=== PATIENT | female | born 1975 | race Hispanic/Latino ===

== ENCOUNTER 2020-11-12 17:37 | Outpatient (CLI) | payer BC, SELFPAY | END 2020-11-12 17:38 | disposition home or self-care (01) | PROVIDERS: PCP Family Medicine | DX: Z23 Encounter for immunization (principal) | CPT/HCPCS: 0001A; 91300 ==

== ENCOUNTER 2020-12-03 16:59 | Outpatient (CLI) | payer BC, SELFPAY | END 2020-12-03 17:00 | disposition home or self-care (01) | LOC: ANHCOVIDVC 17:00 | PROVIDERS: PCP Family Medicine | DX: Z23 Encounter for immunization (principal) | CPT/HCPCS: 0002A; 91300 ==

== ENCOUNTER → 2021-09-05 10:46 | Outpatient (CLI) | payer BC, SELFPAY ==
[2021-09-06 20:10] LABS: SARS-CoV-2 RNA PCR Negative
== END ==
PROVIDERS: PCP Family Medicine; Visit Provider Nurse Practitioner Family
DX: R68.89 Other general symptoms and signs (principal); Z20.822 Contact with and (suspected) exposure to COVID-19
CPT/HCPCS: C9803; U0003; U0005

== ENCOUNTER 2022-07-25 11:10 | Outpatient (CLI) | payer BC, SELFPAY ==
[2022-07-25 22:17] LABS: Hemoglobin A1C 7.9 % (<5.7)
[2022-07-27 04:29] LABS: Free T4 Free Thyroxine Reflex 0.94 ng/dL (0.78-2.19)
[2022-07-27 05:09] LABS: Total Triiodothyronine (T3) 1.57 NG/ML (0.97-1.69)
== END 2022-07-25 11:11 | disposition home or self-care (01) ==
LOC: ANHGOSHLAB 11:13
PROVIDERS: PCP Family Medicine; Visit Provider Family Medicine
DX: E11.9 Type 2 diabetes mellitus without complications (principal); E03.9 Hypothyroidism, unspecified
CPT/HCPCS: 36415; 83036; 84439; 84443; 84480

== ENCOUNTER 2022-10-03 13:00 | Outpatient (RCR) | payer BC, SELFPAY | END 2022-10-30 11:14 | disposition home or self-care (01) | LOC: ANHDMC 13:00 | PROVIDERS: PCP Family Medicine; Visit Provider Family Medicine | DX: E11.9 Type 2 diabetes mellitus without complications (principal); Z71.89 Other specified counseling | CPT/HCPCS: G0108 ==

== ENCOUNTER 2022-12-13 15:33 | Outpatient (CLI) | payer BC, SELFPAY ==
[2022-12-13 18:46] LABS: Vitamin D 25 Hydroxy 25.3 ng/mL
[2022-12-13 18:57] LABS: Alanine Aminotransferase 116 U/L (6-35); Albumin Level 4.3 g/dL (3.5-5.1); Alkaline Phosphatase 112 U/L (38-126); Anion Gap 5 mmol/L (8-16); Aspartate Amino Transferase 85 U/L (14-36); Bilirubin,Total 0.7 mg/dL (0.2-1.3); Blood Urea Nitrogen 20 mg/dL (7-17); Calcium 9.4 mg/dL (8.4-10.2); Carbon Dioxide 31 mmol/L (22-30); Chloride 100 mmol/L (98-107); Cholesterol 186 mg/dL (0-200); Estimated Glomerular Filt Rate > 60; Glucose 184 mg/dL (65-110); HDL Direct 52 mg/dL; Potassium 3.9 mmol/L (3.4-5.0); Sodium 136 mmol/L (137-145); Triglycerides 195 mg/dL (<150)
[2022-12-13 19:08] LABS: LDL Cholesterol Direct 102 mg/dL
[2022-12-13 19:51] LABS: Hemoglobin A1C 6.4 % (<5.7)
[2022-12-13 20:20] LABS: Free T4 Free Thyroxine Reflex 1.02 ng/dL (0.78-2.19)
[2022-12-13 21:04] LABS: Total Triiodothyronine (T3) 1.43 NG/ML (0.97-1.69)
== END 2022-12-13 15:34 | disposition home or self-care (01) ==
LOC: ANHGOSHLAB 15:33
PROVIDERS: PCP Family Medicine; Visit Provider Family Medicine
DX: E11.9 Type 2 diabetes mellitus without complications (principal); Z13.220 Encounter for screening for lipoid disorders; E03.9 Hypothyroidism, unspecified; E55.9 Vitamin D deficiency, unspecified; I10 Essential (primary) hypertension
CPT/HCPCS: 36415; 80053; 80061; 82306; 83036; 84439; 84443; 84480

== ENCOUNTER 2023-01-19 15:15 | Outpatient (RCR) | payer BC, SELFPAY ==
--- NOTE | 2022-12-07 16:43 | PTOPEVAL1 ---
Assessment and note entered by Christian Balderrama, PT, DPT Evaluation Information Assessment Status Evaluation Diagnosis unsteadiness on her feet Subjective Information Pt states she has a lot of leg and back pain because of arthritis. 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 She states she has a high pain tolerance so did not realize her weakness was an issue until now. She states she has excruciating pain when standing for a while. She states she is just in bad shape and does not know where to start. Shes states when she takes her dog out she uses a walker d/t a prior fall. She reports a 6/10 pain but reports she cannot tell where her pain is . She states she has been trying to move around her house home but because she works from home this is hard. Reported Pain Level Pain Score 6: Self Report Assessment PT Clinical Summary Emily presents to therapy today for her initial evaluation with a diagnosis of unsteadiness on her feet. Today she demonstrates decreased LE strength throughout her BLEs. She demonstrates a decreased gait speed and has a shuffled and Trendelenburg gait pattern. She scores a 50/56 on the MUIR balance test and requires 23s to complete the 5xSTS test which places her at an increased risk for falls. Skilled physical therapy services are indicated to improve LE strength, LE pain reports, and overall functional mobility. Plan of Care Interventions Electrical Stimulation,Gait Training,Hot Pack/Cold Pack,Manual Therapy,Neuro Re-education,Patient/ Caregiver Educati,Therapeutic Activities, Therapeutic Exercise PT Services Indicated Yes Treatment Frequency and 2x/wk for 4 wks Duration These treatments will address the objective and functional deficits as defined above. The patient will be advanced safely and appropriately in order for the patient to progress towards his/her prior level of function. Additional exercises will be introduced and as well as a comprehensive home exercise program upon discharge, if needed, ?to ensure carryover of functional gains achieved in the clinic. This treatment plan has been reviewed and agreement upon by the patient.
--- NOTE | 2022-12-29 16:03 | PCPTNOTE ---
Patient canceled for this date due to work.
--- NOTE | 2023-01-04 13:29 | PCPTNOTE ---
Patient called & cancelled scheduled appointment this date due to having to work. She has been rescheduled.
--- NOTE | 2023-01-19 15:59 | PTOPDC ---
Assessment and note entered by Christian Balderrama, PT, DPT Evaluation Information Assessment Status Discharge Diagnosis unsteadiness on her feet Subjective Information Pt states she has noticed some improvements in her balance but is not 100%, she reports about 75% improvement. She states she can get off the couch much easier now. Reported Pain Level Pain Score 2: Self Report Assessment PT Clinical Summary Emily presents to therapy today for her progress report following 6 visits of skilled therapy with a diagnosis of unsteadiness on her feet. Today she demonstrates improve hip and LE strength but still decreased from expected. She improved her 2 min walk distance minimally but was able to improve her 5xSTS time from 23s to 15s. She is progressing slowly but well towards her therapy goals. She will be discharged at this time with instructed to continue her strengthening program as prescribed.
== END 2023-01-23 08:42 | disposition home or self-care (01) ==
LOC: ANHGOSHPT 15:15
PROVIDERS: PCP Family Medicine; Visit Provider Family Medicine
DX: R26.81 Unsteadiness on feet (principal)
CPT/HCPCS: 97110; 97112; 97140; 97161; 97530

== ENCOUNTER 2023-02-13 15:30 | Outpatient (RCR) | payer BC, SELFPAY | END 2023-02-19 08:40 | disposition home or self-care (01) | LOC: ANHDMC 15:30 | PROVIDERS: PCP Family Medicine; Visit Provider Family Medicine | DX: E11.9 Type 2 diabetes mellitus without complications (principal); Z71.89 Other specified counseling | CPT/HCPCS: G0108 ==

== ENCOUNTER 2023-03-13 15:30 | Outpatient (RCR) | payer BC, SELFPAY ==
[2023-03-13 15:39] VITALS: BMI 48.6
[2023-03-13 16:15] VITALS: BMI 48.6
== END 2023-06-11 12:50 | disposition home or self-care (01) ==
LOC: ANHDMC 15:30
PROVIDERS: PCP Family Medicine; Visit Provider Family Medicine
DX: E11.9 Type 2 diabetes mellitus without complications (principal); Z71.3 Dietary counseling and surveillance
CPT/HCPCS: 97802

== ENCOUNTER 2023-03-31 08:41 | Outpatient (CLI) | payer BC, SELFPAY ==
--- NOTE | ~2023-03-31 | US_ITS ---
EXAMINATION: US right upper quadrant DATE: 03/31/2023 09:42 INDICATION: RUQ sono TECHNIQUE: Multiple grayscale and Doppler ultrasound images of the right upper quadrant were obtained . COMPARISON: Ultrasound abdomen Limited 08/14/2010. FINDINGS: Exam limited by body habitus. Pancreas not visualized. The liver is normal size with increa sed echogenicity and normal echotexture. No surface nodularity. Normal hepatopetal flow in the main p ortal vein. The gallbladder is normal with no abnormal wall thickening, pericholecystic fluid or ston es. The common bile duct measures 3 mm. There was no sonographic Arauz sign. IMPRESSION: Echogenic liver, most commonly due to steatosis but also can be seen with hepatitis and fibrosis. Reviewed, dictated and finalized at location K. IMPRESSION: Echogenic liver, most commonly due to steatosis but also can be seen with hepat itis and fibrosis.
== END 2023-03-31 08:42 ==
LOC: MICIMG 08:42
PROVIDERS: PCP Family Medicine; Visit Provider Family Medicine
DX: R10.11 Right upper quadrant pain (principal); R93.2 Abnormal findings on diagnostic imaging of liver and biliary tract
CPT/HCPCS: 76705

== ENCOUNTER 2023-04-04 13:56 | Outpatient (CLI) | payer BC, SELFPAY ==
[2023-04-04 19:11] LABS: Alanine Aminotransferase 120 U/L (6-35); Albumin Level 3.8 g/dL (3.5-5.1); Alkaline Phosphatase 81 U/L (38-126); Anion Gap 4 mmol/L (8-16); Aspartate Amino Transferase 92 U/L (14-36); Bilirubin,Total 0.7 mg/dL (0.2-1.3); Blood Urea Nitrogen 15 mg/dL (7-17); Calcium 9.1 mg/dL (8.4-10.2); Carbon Dioxide 27 mmol/L (22-30); Chloride 100 mmol/L (98-107); Estimated Glomerular Filt Rate > 60; Glucose 332 mg/dL (65-110); Potassium 4.1 mmol/L (3.4-5.0); Sodium 131 mmol/L (137-145)
== END 2023-04-04 13:57 | disposition home or self-care (01) ==
LOC: ANHGOSHLAB 13:57
PROVIDERS: PCP Family Medicine; Visit Provider Family Medicine
DX: Z13.228 Encounter for screening for other metabolic disorders (principal)
CPT/HCPCS: 36415; 80053

== ENCOUNTER 2023-05-11 15:39 | Outpatient (CLI) | payer BC, SELFPAY ==
[2023-05-11 19:10] LABS: Hemoglobin A1C 7.1 % (<5.7)
[2023-05-11 19:38] LABS: Hepatitis B Surface Antigen Negative (Negative)
[2023-05-11 19:44] LABS: HAV RESULT Negative (Negative); Hepatitis B Core IgM Result Negative (Negative)
[2023-05-11 19:56] LABS: Hepatitis C Virus Antibody Negative (Negative)
[2023-05-11 20:09] LABS: Free T4 Free Thyroxine Reflex 1.09 ng/dL (0.78-2.19)
[2023-05-11 21:09] LABS: Total Triiodothyronine (T3) 1.47 NG/ML (0.97-1.69)
[2023-05-17 14:47] LABS: ALT 158 U/L (6-29); Alpha-2-Macroglobulin 182 mg/dL (106-279); Apolipoprotein A1 169 mg/dL (101-198); Fibrosis Score 0.18; Fibrosis Stage F0; GGT 59 U/L (3-55); Haptoglobin 131 mg/dL (43-212); Necroinflammat Act Grade A3; Total Bilirubin 0.7 mg/dL (0.2-1.2)
== END 2023-05-11 15:40 | disposition home or self-care (01) ==
LOC: ANHGOSHLAB 15:40
PROVIDERS: PCP Family Medicine; Visit Provider Family Medicine
DX: E11.9 Type 2 diabetes mellitus without complications (principal); K76.0 Fatty (change of) liver, not elsewhere classified; R74.01 Elevation of levels of liver transaminase levels; Z13.29 Encounter for screening for other suspected endocrine disorder
CPT/HCPCS: 36415; 80074; 81596; 83036; 84439; 84443; 84480

== ENCOUNTER 2023-09-25 15:30 | Outpatient (RCR) | payer BC, SELFPAY | END 2023-09-26 23:59 | disposition home or self-care (01) | LOC: ANHDMC 15:30 | PROVIDERS: PCP Family Medicine; Visit Provider Family Medicine | DX: E11.9 Type 2 diabetes mellitus without complications (principal); Z71.89 Other specified counseling | CPT/HCPCS: G0108 ==

== ENCOUNTER 2023-11-16 09:53 | Outpatient (CLI) | payer OTHER, SELFPAY ==
[2023-11-16 14:31] LABS: Cholesterol 182 mg/dL (0-200); HDL Direct 47 mg/dL; Triglycerides 127 mg/dL (<150)
[2023-11-16 14:42] LABS: LDL Cholesterol Direct 112 mg/dL
[2023-11-16 15:15] LABS: Free T4 Free Thyroxine 1.14 ng/mL (0.78-2.19)
[2023-11-16 17:20] LABS: Hemoglobin A1C 7.2 % (<5.7)
== END 2023-11-16 09:54 | disposition home or self-care (01) ==
LOC: ANHGOSHLAB 09:54
PROVIDERS: PCP Family Medicine; Visit Provider Family Medicine
DX: E03.9 Hypothyroidism, unspecified (principal); E11.9 Type 2 diabetes mellitus without complications; Z13.220 Encounter for screening for lipoid disorders
CPT/HCPCS: 36415; 80061; 83036; 84439; 84443

== ENCOUNTER 2024-07-02 10:43 | Outpatient (CLI) | payer OTHER, SELFPAY ==
--- NOTE | ~2024-07-02 | US_ITS ---
EXAMINATION: US thyroid DATE: 07/02/2024 10:58 INDICATION: Dysphagia TECHNIQUE: Multiple ultrasound images of the thyroid were obtained. COMPARISON: None. FINDINGS: The right thyroid lobe measures 3.8 x 1.6 x 1.8 cm. The left thyroid lobe measures 3.8 x 1.1 x 1.4 c m. The isthmus measures 0.3 cm. There is normal echotexture and echogenicity throughout the thyroid g land. No discrete nodules identified. Normal vascular flow is present. IMPRESSION: Normal thyroid ultrasound findings. Reviewed, dictated and finalized at location K.
== END 2024-07-02 10:44 | disposition home or self-care (01) ==
LOC: GOSHIMG 10:44
PROVIDERS: PCP Family Medicine; Visit Provider Family Medicine
DX: R13.10 Dysphagia, unspecified (principal)
CPT/HCPCS: 76536

== ENCOUNTER 2024-09-02 08:19 | Outpatient (CLI) | payer OTHER, SELFPAY ==
[2024-09-02 12:44] LABS: Alanine Aminotransferase 66 U/L (6-35); Albumin Level 4.2 g/dL (3.5-5.1); Alkaline Phosphatase 97 U/L (38-126); Anion Gap 2 mmol/L (4-12); Aspartate Amino Transferase 76 U/L (14-36); Bilirubin,Total 0.8 mg/dL (0.2-1.3); Blood Urea Nitrogen 21 mg/dL (7-17); Calcium 9.7 mg/dL (8.4-10.2); Carbon Dioxide 31 mmol/L (22-30); Chloride 104 mmol/L (98-107); Cholesterol 205 mg/dL (0-200); Estimated Glomerular Filt Rate > 60; Glucose 135 mg/dL (65-110); HDL Direct 46 mg/dL; Potassium 4.1 mmol/L (3.4-5.0); Sodium 137 mmol/L (137-145); Triglycerides 205 mg/dL (<150)
[2024-09-02 12:53] LABS: Creatinine Urine 205.4 mg/dL
[2024-09-02 12:56] LABS: LDL Cholesterol Direct 107 mg/dL
[2024-09-02 12:58] LABS: MALB Creatinine Ratio 59.2 mg/g (0-30); Microalbumin Urine Random 121.6 mg/L (0-16.7)
[2024-09-02 13:01] LABS: Free T4 Free Thyroxine 0.96 ng/dL (0.78-2.19)
[2024-09-02 13:15] LABS: Hemoglobin A1C 6.6 % (<5.7)
[2024-09-04 14:07] LABS: FSH 114.2 mIU/mL
[2024-09-05 08:59] LABS: Testosterone Total 29 ng/dL (2-45)
[2024-09-07 01:03] LABS: Estradiol, Ultrasensitive 8 pg/mL
== END 2024-09-02 08:20 | disposition home or self-care (01) ==
PROVIDERS: Obstetrics & Gynecology; PCP Family Medicine; Visit Provider Family Medicine
DX: E03.9 Hypothyroidism, unspecified (principal); E78.5 Hyperlipidemia, unspecified; E11.9 Type 2 diabetes mellitus without complications; R68.82 Decreased libido; Z13.228 Encounter for screening for other metabolic disorders
CPT/HCPCS: 36415; 80053; 80061; 82043; 82670; 83001; 83036; 84402; 84403; 84439; 84443

== ENCOUNTER 2024-09-29 15:12 | Outpatient (CLI) | payer OTHER, SELFPAY ==
--- NOTE | ~2024-09-29 | MM_ITS ---
EXAMINATION: MM screening colt BI w shabbir HISTORY: Screening TECHNIQUE: Craniocaudal and mediolateral oblique 3-D tomosynthesis images were obtained and synthetic 2-D images were generated. CAD analysis was submitted and interpreted. COMPARISON: No prior mammogram is available for comparison at this institution. BREAST PARENCHYMAL COMPOSITION: Not Dense: The breasts are almost entirely fatty. FINDINGS: There is no evidence of suspicious mass, calcification, or architectural distortion to sugg est malignancy in either breast. There has been no suspicious interval change. IMPRESSION: 1. No mammographic evidence of malignancy. 2. Recommend routine screening mammography in one year. BI-RADS Category 1: Negative Reviewed, dictated and finalized at location A. MARKETING SPECIALIST
== END 2024-09-29 15:13 | disposition home or self-care (01) ==
LOC: MICIMG 15:12
PROVIDERS: PCP Family Medicine; Visit Provider Obstetrics & Gynecology
DX: Z12.31 Encounter for screening mammogram for malignant neoplasm of breast (principal)
CPT/HCPCS: 77063; 77067

== ENCOUNTER 2025-04-30 10:34 | Outpatient (CLI) | payer OTHER, SELFPAY ==
--- OUTSIDE RECORDS SUMMARY | 2025-04-30 10:37 | XMS_ITS | Clinical Summary ---
Author Organization [facility] Address [address] [place] [id number] Phone Care Team Providers Care Certified Professional Ergonomist Name Role Phone Denver Jalloh DO Primary Care Provider [phone] Allergies No known active allergies Active Problems Problem Noted Date Diagnosed Date Osteoarthritis 06/06/2011 Knee pain 06/06/2011 Social History Tobacco Use Types Packs/Day Years Used Date Smoking Tobacco: Never Personal Safety Answer Date Recorded Getting School Help Needed Not on file 11/16 Comments Unknown Sex and Gender Information Value Date Recorded Sex Assigned at Not on file Legal Sex Female 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 Gender Identity Not on file Sexual Orientation Not on file Obstetrics History Last Filed Vital Signs Vital Sign Reading Time Taken Comments Blood Pressure 149/92 10/29/2022 11:19 AM WIRE CHIEF Pulse 85 10/29/2022 11:19 AM WIRE CHIEF Temperature 36.9 C (98.5 F) 10/29/2022 11:19 AM WIRE CHIEF Respiratory Rate 20 10/29/2022 11:19 AM WIRE CHIEF Oxygen Saturation 96% 10/29/2022 11:19 AM WIRE CHIEF Inhaled Oxygen Concentration - - Weight 117.9 kg (260 lb) 10/29/2022 11:19 AM WIRE CHIEF Height 157.5 cm (5' 2) 10/29/2022 11:19 AM WIRE CHIEF Body Mass Index 47.55 10/29/2022 11:19 AM WIRE CHIEF Plan of Treatment Health Maintenance Due Date Last Done Comments Breast Cancer Screening-Mammogram 1974 Cervical Cancer Screening 1974 Colon Cancer Screening-Colonoscopy 1974 Depression Screening 1974 Hepatitis C Screening 1974 DTaP/Tdap/Td Vaccine (1 - Tdap) 1985 Hepatitis B Screening 1992 Regular Well Visit/Exam 18-64 1992 Covid-19 Vaccine (4 - 2023-2 5 season) 2024 10/03/2021, 12/03/2020, 11/12/2020 Zoster Vaccine (1 of 2) 2024 Influenza Vaccine (#1) 2025 , 07/01/2019 Pneumococcal vaccine <65 Aged Out No longer eligible based on patient's age to complete this topic Insurance [employer] [place] [employer] [place] Care Teams Certified Professional Ergonomist Relationship Specialty Start Date End Date Denver Jalloh DO PCP - General Family Medicine 11/30/21
--- OUTSIDE RECORDS SUMMARY | 2025-04-30 10:37 | XMS_ITS | Clinical Summary ---
Author Organization [facility] Address [address] [place] [address] Phone Care Team Providers Care Supervisor Intelligence Analyst Name Role Phone Unavailable Primary Care Provider Unavailabl e Social History Tobacco Use Types Packs/Day Years Used Date Smoking Tobacco: Never Assessed Comments Unknown Sex and Gender Information Value Date Recorded Sex Assigned at Not on file Legal Sex Female 3:03 PM CDT Gender Identity Not on file Sexual Orientation Not on file Plan of Treatment Health Maintenance Due Date Last Done Comments DTAP/TDAP/TD VACCINES (1 - Tdap) 1993 HEPATITIS B VACCINES (1 of 3 - 19+ 3-dose series) 06/04 HPV/Cotest (21-29) 1995 CERVICAL CANCER SCREENING 2004 HPV/Cotest (30-65) 2004 PAP SMEAR 2004 BREAST CANCER SCREENING 2014 COLORECTAL SCREENING 2019 Colorectal Cancer Screening 2019 FIT-DNA Q 3 years 2019 FIT/FOBT Q 1 year 2019 Flex Sig/CT Colonography Q 5 years 2019 ZOSTER VACCINE (1 of 2) 2024 INFLUENZA VACCINE (#1) 2025
[2025-04-30 14:31] LABS: Hematocrit 40.3 % (37.0-47.0); Hemoglobin 13.4 g/dL (12.0-15.0); Mean Corpuscular HGB Conc 33.3 g/dl (32-36); Mean Corpuscular Hemoglobin 29.3 pg (26-34); Mean Corpuscular Volume 88.0 fl (80-100); Platelet Count Result 266 k/mm3 (150-375); Red Blood Count 4.58 M/mm3 (4.2-5.4); White Blood Count 6.1 K/mm3 (4.5-10.0)
[2025-04-30 14:51] LABS: Alanine Aminotransferase 53 U/L (6-35); Albumin Level 4.1 g/dL (3.5-5.1); Alkaline Phosphatase 94 U/L (38-126); Anion Gap 5 mmol/L (4-12); Aspartate Amino Transferase 82 U/L (14-36); Bilirubin,Total 0.6 mg/dL (0.2-1.3); Blood Urea Nitrogen 19 mg/dL (7-17); Calcium 9.5 mg/dL (8.4-10.2); Carbon Dioxide 31 mmol/L (22-30); Chloride 103 mmol/L (98-107); Cholesterol 187 mg/dL (0-200); Estimated Glomerular Filt Rate > 60; Glucose 134 mg/dL (65-110); HDL Direct 49 mg/dL; Potassium 4.0 mmol/L (3.4-5.0); Sodium 139 mmol/L (137-145); Total Protein 7.6 g/dL (6.3-8.2); Triglycerides 111 mg/dL (<150)
[2025-04-30 17:15] LABS: Thyroid Stimulating Hormone Reflex 9.600 uIU/mL (0.465-4.68)
[2025-04-30 17:22] LABS: MALB Creatinine Ratio 80.1 mg/g (0-30)
[2025-04-30 18:21] LABS: Free T4 Free Thyroxine Reflex 0.85 ng/dL (0.78-2.19)
[2025-04-30 18:26] LABS: Hemoglobin A1C 6.6 % (<5.7)
[2025-04-30 19:26] LABS: Total Triiodothyronine (T3) 1.37 NG/ML (0.82-1.58)
== END 2025-04-30 10:35 | disposition home or self-care (01) ==
LOC: ANHGOSHLAB 10:35
PROVIDERS: PCP Nurse Practitioner Family; Visit Provider Nurse Practitioner Family
DX: F41.9 Anxiety disorder, unspecified (principal); I10 Essential (primary) hypertension; R00.2 Palpitations; E78.5 Hyperlipidemia, unspecified; E11.9 Type 2 diabetes mellitus without complications; E03.8 Other specified hypothyroidism; E06.3 Autoimmune thyroiditis; E66.01 Morbid (severe) obesity due to excess calories; Z68.42 Body mass index [BMI] 45.0-49.9, adult; R79.89 Other specified abnormal findings of blood chemistry; K76.0 Fatty (change of) liver, not elsewhere classified; R80.9 Proteinuria, unspecified; Z78.0 Asymptomatic menopausal state; M19.90 Unspecified osteoarthritis, unspecified site; Z76.89 Persons encountering health services in other specified circumstances
CPT/HCPCS: 36415; 80053; 80061; 82043; 82306; 83036; 84439; 84443; 84480; 85027

== ENCOUNTER 2025-05-13 09:16 | Emergency (ER) | payer OTHER, SELFPAY ==
[2025-05-13 09:27] VITALS: BP 145/83; PULSE 79; RESP 16; TEMP 35.8; O2SAT 98
--- NOTE | 2025-05-13 09:46 | ED.EYEPROB ---
HPI - Eye Problem General Chief complaint: Eye Problems Stated complaint: EYE SWELLING Time Seen by Provider: 05/13/25 10:08 Source: patient and RN notes reviewed Mode of arrival: ambulatory Limitations: no limitations History of Present Illness HPI Narrative: 49-year-old female presents with concern for right upper eyelid redness and swelling. She reports it is tender. She reports symptoms started yesterday, she has used warm compresses. She reports that helped a little bit. She denies vision changes or drainage MD chief complaint: eye redness Related Data Home Medications ?Medication ?Instructions ?Recorded ?Confirmed ?Last Taken ?Type ibuprofen 400 mg tablet 400 mg PO TID PRN 11/21/22 04/30/25 Unknown History Allergies Allergy/AdvReac Type Severity Reaction Status Date / Time No Known Allergies Allergy Verified 05/13/25 09:33 Review of Systems Review of Systems: CONSTITUTIONAL: Denies malaise, chills, sweats, or fever. EYES: Denies visual changes. Reports right upper eyelid redness, swelling and tenderness. Denies eye irritation, discharge. ENT: Denies rhinorrhea, congestion, sinus pain, otalgia or sore throat. SKIN: Denies rash or itching. NEUROLOGIC: Denies numbness, weakness, or headache. PSYCHIATRIC: Denies anxiety or depression. All systems reviewed & are unremarkable except as noted in HPI and below PMFSH Past Medical History Medical History (Updated 05/13/25 @ 10:16 by Alda Khan NP) Peripheral neuropathy Leg pain, bilateral Menopause Colon cancer screening Arthritis Anxiety Breast screening Dietary counseling and surveillance (07/01/18) Elevated BP without diagnosis of hypertension Screening, lipid Family History Family History Father Diabetes mellitus Hypertension Mother Diabetes mellitus Grandparent Diabetes mellitus Hypertension Grandparent Diabetes mellitus Other Family history of arthritis Social History Social History Smoking status: Never smoker Second hand tobacco smoke exposure: No Alcohol intake: never Substance use: never Substance use type: does not use Do You Feel Safe in your Home?: Yes Lack of Transportation: No Current Housing: Decline to Answer Concerned About Future Housing: Decline to Answer Difficulty Paying Gas/Electric Bills: Decline to Answer Difficulty Paying for Meds: Decline to Answer Currently Unemployed: Decline to Answer Education: Decline to Answer Difficulty w/ Childcare or Family Care: Decline to Answer Living arrangements: with family Additional living arrangements comments: 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 There is no relevant family history pertinent to the presenting complaint Exam Narrative: GENERAL: Well-appearing, well-nourished, and in no acute distress. HEAD: Normocephalic, atraumatic. EYES: PERRLA, sclera clear, and EOMI. No nystagmus. Bilateral conjunctivae and sclera clear. Upper eyelid is slightly edematous and erythematous, lower eyelid unremarkable, no periorbital edema noted ENT: Nares clear, turbinates pink, no rhinorrhea or epistaxis. Mucous membranes moist. TM pearly jean with sharp light reflex bilaterally; no tragal tenderness. NECK: Supple. CHEST: No respiratory distress. Speaks in full sentences. HEART: Regular rate and rhythm. SKIN: Warm, dry, no visible rash. NEURO: Alert and oriented x3. PSYCH: Normal mood and affect Course Course Emergency Course: Patient is aware of diagnosis, understands and agrees to treatment plan. Anticipatory guidance given. Patient agrees to follow-up as directed and is aware of reasons to seek care at the emergency department. Portions of this record may have been created with voice recognition software Level of Care: Express Care Visit Vital Signs Vital signs: Vital Signs Temperature 96.5 F L 05/13/25 09:27 Pulse Rate 79 05/13/25 09:27 Respiratory Rate 16 05/13/25 09:27 Blood Pressure 145/83 H 05/13/25 09:27 Pulse Oximetry 98 05/13/25 09:27 Temperature 96.5 F L 05/13/25 09:27 Pulse Rate 79 05/13/25 09:27 Respiratory Rate 16 05/13/25 09:27 Blood Pressure 145/83 H 05/13/25 09:27 Pulse Oximetry 98 05/13/25 09:27 Reviewed. MDM - Eye Problem MDM Narrative Medical decision making narrative: Consideration of the following conditions may be warranted for the presenting problem, they are not final diagnoses: Bacterial conjunctivitis, allergic conjunctivitis, viral conjunctivitis, foreign body, blepharitis, chalazion, hordeolum, corneal abrasion, preseptal cellulitis, orbital cellulitis. No evidence of proptosis, ophthalmoplegia, vision loss, pain with eye movement. Exam findings show no acute concerns or changes; patient is non-toxic appearing and is in no distress. Patient is appropriate for outpatient treatment and follow-up. Critical Care Time Critical Care Time Critical Care Time: No Discharge Plan Discharge Clinical Impression: Hordeolum internum Patient Disposition: Home Condition: Stable Instructions: Angel (ED) Additional Instructions: Do not touch or rub your eye. Use a warm washcloth on your eye often Use eyedrops as directed You may take Tylenol or ibuprofen for pain Follow-up with PCP or endodontic assistant if condition is not improving in 2-3days. Go to the emergency room if you have pain behind your eye, pressure behind your eye, difficulty seeing, or other severe symptoms Patient Language: Syrian Prescriptions: New polymyxin B sulf-trimethoprim 10,000 unit- 1 mg/mL drops 1 drp RIGHT EYE Q3H 7 Days Qty: 10 0RF Rx Instructions: while awake; do not exceed 6 doses in 24 hours No Action gabapentin 300 mg capsule 300 mg PO TID Qty: 90 0RF (DME) Dexcom G7 Sensor Device See Rx Instructions .Route Qty: 1 0RF Rx Instructions: Change every 10 days. (DME) Dexcom G7 Press Machine Operator Misc See Rx Instructions .Route Qty: 1 0RF Rx Instructions: Use to check BS ibuprofen 400 mg tablet 400 mg PO TID PRN lisinopril 2.5 mg tablet 2.5 mg PO DAILY Qty: 90 1RF Follow-up/Referrals: Leann Lr APRN [Primary Care Provider, Internal Medicine] Stand Alone Forms: Work/School Release IP Time of Disposition: 10:17
== END 2025-05-13 10:35 | disposition home or self-care (01) ==
PROVIDERS: Emergency Provider Nurse Practitioner; PCP Nurse Practitioner Family
DX: H00.021 Hordeolum internum right upper eyelid (principal); G62.9 Polyneuropathy, unspecified; M19.90 Unspecified osteoarthritis, unspecified site
CPT/HCPCS: 99213; G0463

== ENCOUNTER 2025-05-29 09:26 | Outpatient (CLI) | payer OTHER, SELFPAY ==
--- NOTE | ~2025-05-29 | XR_ITS ---
XR thoracic spine 2V Indication: M54.10 - Radiculopathy, site unspecified Comparison: None Findings: Moderate loss of vertebral height throughout. No fracture or subluxation. Moderate loss of disc height throughout. Soft tissues unremarkable Impression: No acute abnormality. Reviewed, dictated and finalized at location P. Impression: No acute abnormality.
--- NOTE | ~2025-05-29 | XR_ITS ---
XR lumbar spine 2-3V Indication: M54.10 - Radiculopathy, site unspecified Comparison: None Findings: The vertebral heights are intact. No fracture or subluxation. Moderate loss of disc at L5-S1. Soft tissues unremarkable Impression: No acute abnormality. Reviewed, dictated and finalized at location P. Impression: No acute abnormality.
--- NOTE | ~2025-05-29 | XR_ITS ---
XR_CERV2-3V_CR Indication: M54.10 - Radiculopathy, site unspecified Comparison: None Findings: Moderate loss of vertebral height throughout with anterior osteophyte formation, no acute fracture or subluxation. Moderate loss of disc height throughout. Soft tissues unremarkable Impression: No acute abnormality. Reviewed, dictated and finalized at location P. Impression: No acute abnormality.
== END 2025-05-29 09:27 | disposition home or self-care (01) ==
LOC: MICIMG 09:28
PROVIDERS: PCP Nurse Practitioner Family; Visit Provider Nurse Practitioner Family
DX: M54.10 Radiculopathy, site unspecified (principal)
CPT/HCPCS: 72040; 72070; 72100

== ENCOUNTER 2025-05-29 10:21 | Outpatient (CLI) | payer OTHER, SELFPAY ==
--- OUTSIDE RECORDS SUMMARY | 2025-05-29 10:23 | XMS_ITS | Clinical Summary ---
Author Organization [facility] Address [address] [place] [address] Phone Care Team Providers Care User Support Specialist Name Role Phone Unavailable Primary Care Provider [...]
--- OUTSIDE RECORDS SUMMARY | 2025-05-29 10:23 | XMS_ITS | Clinical Summary ---
Author Organization [facility] Address [address] [place] [phone] Phone Care Team Providers Care Casing Material Weigher Name Role Phone Denver Jalloh DO Primary Care Provider [phone] Allergies No known active allergies Active Problems Problem Noted Date Diagnosed Date Osteoarthritis 06/06/2011 Knee pain 06/06/2011 Social History Tobacco Use Types Packs/Day Years Used Date Smoking Tobacco: Never Personal Safety Answer Date Recorded Getting School Help Needed Not on file 11/16 Comments Unknown Sex and Gender Information Value Date Recorded Sex Assigned at Not on file Legal Sex 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[employer] SE[employer]ER [employer]S Gender Identity Not on file Sexual Orientation Not on file Obstetrics History Last Filed Vital Signs Vital Sign Reading Time Taken Comments Blood Pressure 149/92 10/29/2022 11:19 AM SUPERINTENDENT WATER AND SE[employer]ER [employer] Pulse 85 10/29/2022 11:19 AM SUPERINTENDENT [employer] Temperature 36.9 C (98.5 F) 10/29/2022 11:19 AM SUPERINTENDENT [employer] Respiratory Rate 20 10/29/2022 11:19 AM SUPERINTENDENT W[employer] AND [employer] Oxygen Saturation 96% 10/29/2022 11:19 AM SUPERINTENDENT [employer] Inhaled Oxygen Concentration - - Weight 117.9 kg (260 lb) 10/29/2022 11:19 AM SUPERINTENDENT [employer] Height 157.5 cm (5' 2) 10/29/2022 11:19 AM SUPERINTENDENT [employer] Body Mass Index 47.55 10/29/2022 11:19 AM SUPERINTENDENT [employer] Plan of Treatment Health Maintenance Due Date Last Done Comments Breast Cancer Screening-Mammogram 1974 Cervical Cancer Screening 1974 Colon Cancer Screening-Colonoscopy 1974 Depression Screening 1974 Hepatitis C Screening 1974 DTaP/Tdap/Td Vaccine (1 - Tdap) 1985 Hepatitis B Screening 1992 Regular Well Visit/Exam 18-64 1992 Zoster Vaccine (1 of 2) 2024 Covid-19 Vaccine (4 - 2024-2 6 season) 2025 10/03/2021, 12/03/2020, 11/12/2020 Influenza Vaccine (#1) 2025 , 07/01/2019 Pneumococcal vaccine <65 Aged Out No longer eligible based on patient's age to complete this topic Insurance [employer] [place] Care Teams Casing Material Weigher Relationship Specialty Start Date End Date Denver Jalloh DO PCP - General Family Medicine 11/30/21
[2025-05-29 18:32] LABS: Magnesium 1.9 mg/dL (1.6-2.3)
[2025-05-29 18:33] LABS: Iron 107 ug/dL (37-170)
[2025-05-29 18:50] LABS: Percent Iron Saturation 24 % (20-50)
[2025-05-29 19:17] LABS: Ferritin 32.20 ng/mL (11.1-264)
[2025-05-29 19:47] LABS: Vitamin B12 353.0 pg/mL (239-931)
== END 2025-05-29 10:22 | disposition home or self-care (01) ==
LOC: ANHGOSHLAB 10:21
PROVIDERS: PCP Nurse Practitioner Family; Visit Provider Nurse Practitioner Family
DX: R20.2 Paresthesia of skin (principal); R26.89 Other abnormalities of gait and mobility; G62.9 Polyneuropathy, unspecified
CPT/HCPCS: 36415; 82607; 82728; 82746; 83540; 83550; 83735

== ENCOUNTER 2025-06-23 10:48 | Emergency (ER) | payer OTHER, SELFPAY ==
--- NOTE | 2025-06-23 10:53 | ED_ITS ---
HPI - URI/Sore Throat General Chief Complaint: Anxiety Stated Complaint: Anxiety Time Seen by Provider: 06/23/25 11:19 Source: patient, RN notes reviewed and old records reviewed Mode of arrival: ambulatory Limitations: no limitations History of Present Illness HPI Narrative: 49-year-old female presents to the [facility] with concerns of feeling drowsy after starting duloxetine a week ago. States that she takes gabapentin at night. Patient states she does not like feeling drowsy at work. Skipped a dose of duloxetine and developed a headache. Treatments prior to arrival: none Related Data Home Medications ?Medication ?Instructions ?Recorded ?Confirmed ?Last Taken ?Type ibuprofen 400 mg tablet 400 mg PO TID PRN 11/21/22 0 05/29/25 Unknown History gabapentin 300 mg capsule 300 mg PO QHS 05/29/2505/29 Unknown History Allergies Allergy/AdvReac Type Severity Reaction Status Date / Time No Known Allergies Allergy Verified 06/23/25 11:10 Review of Systems Review of Systems: All systems reviewed & are unremarkable except as noted in HPI and below Constitutional: Constitutional: Reports no additional constitutional complaints ENT: Reports system reviewed and no additional complaints, except as documented Cardiovascular: Cardiovascular: Reports no additional cardiovascular complaints, Denies chest pain and Denies dyspnea Respiratory: Respiratory: Reports no additional respiratory complaints, Denies chest congestion, Denies cough and Denies dyspnea Musculoskeletal: Musculoskeletal: Reports no additional musculoskeletal complaints Integumentary/Breasts: Skin/Breast: Reports system reviewed and no additional complaints, except as docu PMFSH Past Medical History Medical History Peripheral neuropathy Leg pain, bilateral Menopause Colon cancer screening Arthritis Anxiety Breast screening Dietary counseling and surveillance (07/01/18) Elevated BP without diagnosis of hypertension Screening, lipid Family History Family History Father Diabetes mellitus Hypertension Mother Diabetes mellitus Grandparent Diabetes mellitus Hypertension Grandparent Diabetes mellitus Other Family history of arthritis Social History Social History Smoking status: Never smoker Second hand tobacco smoke exposure: No Alcohol intake: never Substance use: never Substance use type: does not use Do You Feel Safe in your Home?: Yes Lack of Transportation: No Current Housing: Decline to Answer Concerned About Future Housing: Decline to Answer Difficulty Paying Gas/Electric Bills: Decline to Answer Difficulty Paying for Meds: Decline to Answer Currently Unemployed: Decline to Answer Education: Decline to Answer Difficulty w/ Childcare or Family Care: Decline to Answer Living arrangements: with family Additional living arrangements comments: 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 Gender identity (if verbalized by the patient): Female Sexual Orientation (if Verbalized by the Patient): Straight or Heterosexual Spiritual care concerns: No Comments At the time of my signature, I reviewed and agree with the nursing past medical, surgical, social, and family history. There is no relevant family history pertinent to the patient complaint. Exam Const: General: cooperative, healthy appearing, comfortable, no acute distress, well developed, alert and well nourished Nutritional Appearance: well nourished and obese Orientation/consciousness: patient oriented x3 Limitations: no limitations HENMT: Head: normal to inspection Eyes: General: appearance normal, both eyes and all related structures Alignment and Position: alignment normal Neck: Neck: normal visual inspection, full ROM, no lymphadenopathy and no meningeal signs Chest: Chest palpation & inspection: normal inspection of the chest Resp: Effort & Inspection: normal respiratory effort and able to speak in complete sentences Cardio: Rate: regular rate Skin: General skin exam: normal color and no rashes or lesions noted Neuro: General: patient oriented x3, gait normal, moves all extremities and no meningeal signs Cognition (Neuro): normal cognition Speech: normal speech Gait exam (Neuro): Normal gait present Extrem: General: normal to inspection, full ROM, capillary refill normal and normal gait Psych: Appearance: grossly normal and well kempt Mental Status: mental status grossly normal Speech and movement: Normal speech and movement present and Clear speech present Affect: normal affect Attitude: cooperative Course Course Level of Care: Express Care Visit Vital Signs Vital signs: Vital Signs Temperature 97.7 F 06/23/25 10:59 Pulse Rate 83 06/23/25 10:59 Respiratory Rate 16 06/23/25 10:59 Blood Pressure 131/89 06/23/25 10:59 Pulse Oximetry 100 06/23/25 10:59 Temperature 97.7 F 06/23/25 10:59 Pulse Rate 83 06/23/25 10:59 Respiratory Rate 16 06/23/25 10:59 Blood Pressure 131/89 06/23/25 10:59 Pulse Oximetry 100 06/23/25 10:59 Reviewed MDM - URI/Sore Throat MDM Narrative Medical decision making narrative: Patient sitting in exam room. Patient is nontoxic, vitals stable. Patient presents wanting to discuss her gabapentin and duloxetine. Is concerned that the duloxetine which she started a week ago is making her too drowsy to work. Discussed with patient possibly moving the duloxetine to taking an at dinner and then if needed taking her gabapentin. Discussed the duloxetine takes a couple of weeks to build up in your system and she should and suddenly. It without talking with her primary care provider Patient with no complaints at this time except for drowsiness, requesting a work note. Discharge instructions reviewed with patient, as well as provided in writing per nursing staff. The instructions also include specific and strict return/GO TO THE ER as well as f/u information. All questions have been answered, and the patient deny any further questions with discharge and discharge plan. Some parts of this dictation were generated by voice recognition software and may contain typographical and/or grammatical inaccuracies. Differential Diagnosis Differential diagnosis: Likely other (Medication reaction) Critical Care Time Critical Care Time Critical Care Time: No Discharge Plan Discharge Clinical Impression: Medication care plan discussed with patient, History of anxiety Patient Disposition: Home Condition: Stable Instructions: Anxiety (ED) Additional Instructions: Follow-up with your primary care provider You should never start and stop medications such as duloxetine Patient Language: Armenian Prescriptions: No Action polymyxin B sulf-trimethoprim 10,000 unit- 1 mg/mL drops 1 drp RIGHT EYE Q3H 7 Days Qty: 10 0RF Rx Instructions: while awake; do not exceed 6 doses in 24 hours gabapentin 300 mg capsule 300 mg PO QHS duloxetine 60 mg capsule,delayed release(DR/EC) 60 mg PO DAILY Qty: 90 1RF (DME) Dexcom G7 Sensor Device See Rx Instructions .Route Qty: 1 0RF Rx Instructions: Change every 10 days. (DME) Dexcom G7 Plant Supervisor Misc See Rx Instructions .Route Qty: 1 0RF Rx Instructions: Use to check BS ibuprofen 400 mg tablet 400 mg PO TID PRN lisinopril 2.5 mg tablet 2.5 mg PO DAILY Qty: 90 1RF Follow-up/Referrals: PHYSICIAN,SERVICES ENGINEER [Primary Care Provider, Internal Medicine] Stand Alone Forms: Work/School Release IP Time of Disposition: 11:25
[2025-06-23 10:59] VITALS: BP 131/89; PULSE 83; RESP 16; TEMP 36.5; O2SAT 100
== END 2025-06-23 11:57 | disposition home or self-care (01) ==
PROVIDERS: Emergency Provider Nurse Practitioner
DX: F41.9 Anxiety disorder, unspecified (principal)
CPT/HCPCS: 99211; G0463

== ENCOUNTER 2025-07-23 10:18 | Outpatient (CLI) | payer OTHER, SELFPAY ==
--- OUTSIDE RECORDS SUMMARY | 2025-07-23 12:29 | XMS_ITS | Data Portability ---
Author Organization [facility], Main Office Address [address] [place] [address] Care Team Providers Care Package Line Operator Name Role Phone HADLEY COLVIN Primary Care Provider Assessment No assessment recorded. Plan of Treatment Reminders Order Date Submit Date Provider Last Modified By Organization Details Last Modified Time Details Appointments None record ed. Lab None record ed. Referral None record ed. Procedures None record ed. Surgeries None record ed. Imaging None record ed. Medication Orders None record ed. Patient TargetsNo targets recorded. Patient InstructionsNo instructions recorded. Reason for Referral None Reported. Problems Name Problem SNOMED Code Status Onset Date Resolution Date Notes Provider Name and Address Organization Details Recorded Time Knee pain Active 2018 Not Available [facility] 3 06:48:35 Sensorineu ral hearing loss 37682689 Active 2022 Tabitha Servin RN [facility], [facility] 3 16:06:42 Tinnitus of right ear 9442588175929 Active 2022 Herminio Guerrero MD [address] [place] [address], [id number] , [facility] 3 16:08:45 Problem Notes None recorded. Medical Equipment None Reported. Allergies No known drug allergies Medications Name Sig Start Date Stop Date Status Note LastModified by Organization Details LastModified Time prednisone 20 mg tablet 07/01 completed Not Available Not Available Not Available phentermine 37.5 mg tablet Take 1 tablet every day by oral route. active Not Available Not Available No t Available tramadol 50 mg tablet 07/01 completed Not Available Not Available Not Available levothyroxi ne 75 mcg tablet TAKE 1 TABLET BY MOUTH DAILY active Not Available Not Available No t Available levothyroxi ne 100 mcg tablet TAKE 1 TABLET BY MOUTH DAILY active Not Available Not Available No t Available Kenalog 10 mg/mL suspension for injection In office injection administe red by the provider 07/01 completed NDC: 0003- 0494- 20 Not Available Not Available Not Available naproxen sodium 550 mg tablet 07/01 completed Not Available Not Available Not Available losartan 50 mg-hydrochl orothiazide 12.5 mg tablet TAKE 1 TABLET BY MOUTH DAILY active Not Available Not Available No t Available metformin ER 500 mg tablet,exte nded release 24 hr TAKE 1 TABLET BY MOUTH TWICE DAILY active Not Available Not Available No t Available [facility]-Dryl Allergy 25 mg capsule TK 1 C PO QHS FOR 14 DAYS 06/18 completed Not Available Not Available Not Available [facility]Tussin DM 10 mg-100 mg/5 mL oral syrup TK 5ML PO Q 6 TO 8 H PRN 06/18 completed Not Available Not Available Not Available levothyroxi ne active Not Available Not Available Not Available losartan active Not Available Not Avai lable Not Available metformin active Not Available Not Ysabel ilable Not Available lidocaine (PF) 10 mg/mL (1 %) injection solution In office injection administe red by the provider 07/01 completed NDC: 0409- 4276- 17 Not Available Not Available Not Available Robitussin Cough-Chest Congestion DM 5 mg-100 mg/5 mL oral liquid Take 5 mL every 6-8 hours by oral route as needed. 06/18 completed Not Available Not Available Not Available Ozempic active Not Available Not Avail able Not Available Mounjaro 7.5 mg/0.5 mL subcutaneou s pen injector active Not Available Not Available Not Available Mounjaro 5 mg/0.5 mL subcutaneou s pen injector active Not Available Not Available Not Available Mounjaro 2.5 mg/0.5 mL subcutaneou s pen injector INJECT 2.5 MG UNDER SKIN EVERY WEEK active Not Available Not Available No t Available Ozempic 0.25 mg or 0.5 mg (2 mg/3 mL) subcutaneou s pen injector INJECT 0.5 MG UNDER THE SKIN WEEKLY FOR 4 WEEKS active Not Available Not Available No t Available Vitals Date Recorded Body height Body mass index (BMI) Body weight Body temperature Provider Name and Address Organization Details Last Updated DateTime 06/20/2023 157.48 cm 47.6 kg/m2 547066.73 g 97.7 [degF] Tabitha Servin RN [place] [facility] [place] 06/20/2023 15:52:24 Social History None recorded. Functional Status Question Answer Note LastModified by Organizat ion Details LastModified Time What is your level of alcohol consumption? 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 Family History Relationship Description Onset Age of this Age Resolved Age Notes LastModified by Organization Details LastModified Time Father No current problems or disability [email or web address] Not available 06/18 10:04:32 Mother No current problems or disability [email or web address] Not available 06/18 10:04:32 Medical History Condition Response DIABETES, TYPE Y HYPERTENSION Y Gynecological HistoryNo gynecological history recorded. Obstetrics History GPAL:G 0 P 0 0 0 0 Immunizations Vaccine Type Date Status Note Provider Nam e and Address Organization Details Recorded Time Influenza, split virus, quadrivalent, PF 07/01/2019 completed Not Available [facility] 3 06:57:03 Past Encounters Encounter ID Performer Location Encounter Start Date Encounter Closed Date Diagnosis/Indication Diagnosis SNOMED-CT Code Diagnosis ICD10 Code Diagnosis IMO Codes Diagnosis Note [id number] Herminio Guerrero MD [facility] [place] [address] [place] [address] 06/20/2023 15:47:01 06/20/2023 16:08:33 Tinnitus of right ear 2216595463 108 H93.11 Health Concerns Section Related Observation LastModified by Organization Detai ls LastModified Time None Recorded Concern Status LastModified by Organization Details LastModified Time None Recorded Advance Directives Directive None Recorded Payers Insurance Date Sequence Insurance Name Policy Number Policy Nguyen Covered Member ID Nguyen Member ID Guarantor Name 06/18/2023 1 [employer] [id number] Emily A Marvin [id number] Emily A Marvin Notes Date Note Type Note Provider Name and Address Organization Details Recorded Time 06/20/2023 text/html this patient developed sudden onset of tinnitus in her right ear a few days ago. Since then it has improved. This did not follow COVID or any other infection. There is no hearing loss or vertigo. Herminio Guerrero MD [address] [place] [address], [place], [address], [place] [facility] 06/20/2023 16:09:07 OBGyn Episode No OBEpisode recorded.
[2025-07-23 12:53] LABS: Alanine Aminotransferase 46 U/L (6-35); Albumin Level 4.6 g/dL (3.5-5.1); Alkaline Phosphatase 141 U/L (38-126); Anion Gap 9 mmol/L (4-12); Aspartate Amino Transferase 49 U/L (14-36); Bilirubin,Total 1.0 mg/dL (0.2-1.3); Blood Urea Nitrogen 21 mg/dL (7-17); Calcium 9.3 mg/dL (8.4-10.2); Carbon Dioxide 28 mmol/L (22-30); Chloride 97 mmol/L (98-107); Estimated Glomerular Filt Rate > 60; Glucose 202 mg/dL (65-110); Potassium 4.0 mmol/L (3.4-5.0); Sodium 134 mmol/L (137-145); Total Protein 8.5 g/dL (6.3-8.2)
[2025-07-23 13:04] LABS: Iron 121 ug/dL (37-170)
[2025-07-23 13:13] LABS: Percent Iron Saturation 28 % (20-50)
[2025-07-23 13:16] LABS: Free T4 Free Thyroxine 0.96 ng/dL (0.78-2.19)
[2025-07-23 13:18] LABS: MALB Creatinine Ratio 311.1 mg/g (0-30)
[2025-07-23 13:33] LABS: Thyroid Stimulating Hormone 5.590 uIU/mL (0.465-4.680)
[2025-07-23 13:44] LABS: Ferritin 28.60 ng/mL (11.1-264)
[2025-07-23 15:23] LABS: Hemoglobin A1C 7.3 % (<5.7)
[2025-07-24 14:08] LABS: ANA by IFA Rfx Titer/Pattern Positive (.)
== END 2025-07-23 10:19 | disposition home or self-care (01) ==
LOC: ANHGOSHLAB 10:20
PROVIDERS: PCP Nurse Practitioner Family; Visit Provider Nurse Practitioner Family
DX: R79.89 Other specified abnormal findings of blood chemistry (principal); E03.8 Other specified hypothyroidism; E06.3 Autoimmune thyroiditis; E55.9 Vitamin D deficiency, unspecified; E11.9 Type 2 diabetes mellitus without complications; I10 Essential (primary) hypertension; F41.9 Anxiety disorder, unspecified; E78.5 Hyperlipidemia, unspecified; E66.01 Morbid (severe) obesity due to excess calories; Z68.42 Body mass index [BMI] 45.0-49.9, adult; K76.0 Fatty (change of) liver, not elsewhere classified; R80.9 Proteinuria, unspecified; Z78.0 Asymptomatic menopausal state; M19.90 Unspecified osteoarthritis, unspecified site; M53.9 Dorsopathy, unspecified; G62.9 Polyneuropathy, unspecified; G47.30 Sleep apnea, unspecified
CPT/HCPCS: 36415; 80053; 82043; 82103; 82105; 82306; 82390; 82728; 83036; 83540; 83550; 84439; 84443; 86015; 86038

== ENCOUNTER 2025-08-20 07:27 | Outpatient (CLI) | payer OTHER, SELFPAY ==
--- OUTSIDE RECORDS SUMMARY | 2025-08-20 07:37 | XMS_ITS | Clinical Summary ---
Author Organization [facility] Address [address] [place] [phone] Phone Care Team Providers Care Auth Specialist Name Role Phone Shubham Denver PADILLA Primary Care Provider [phone] Allergies No known active allergies Active Problems Problem Noted Date Diagnosed Date Osteoarthritis 06/06/2011 Knee pain 06/06/2011 Social History Tobacco Use Types Packs/Day Years Used Date Smoking Tobacco: Never Personal Safety Answer Date Recorded Getting School Help Needed Not on file 11/16 Comments Unknown Sex and Gender Information Value Date Recorded Sex Assigned at Not on file Legal Sex Female 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 Gender Identity Not on file Sexual Orientation Not on file Last Filed Vital Signs Vital Sign Reading Time Taken Comments Blood Pressure 149/92 10/29/2022 11:19 AM AUTO SELF SERVICE STATION ATTENDANT Pulse 85 10/29/2022 11:19 AM AUTO SELF SERVICE STATION ATTENDANT Temperature 36.9 C (98.5 F) 10/29/2022 11:19 AM AUTO SELF SERVICE STATION ATTENDANT Respiratory Rate 20 10/29/2022 11:19 AM AUTO SELF SERVICE STATION ATTENDANT Oxygen Saturation 96% 10/29/2022 11:19 AM AUTO SELF SERVICE STATION ATTENDANT Inhaled Oxygen Concentration - - Weight 117.9 kg (260 lb) 10/29/2022 11:19 AM AUTO SELF SERVICE STATION ATTENDANT Height 157.5 cm (5' 2) 10/29/2022 11:19 AM AUTO SELF SERVICE STATION ATTENDANT Body Mass Index 47.55 10/29/2022 11:19 AM AUTO SELF SERVICE STATION ATTENDANT Plan of Treatment Not on file Insurance BLUE [employer]ESS CHOICE [place] [employer] [place] Care Teams Auth Specialist Relationship Specialty Start Date End Date Denver Jalloh DO PCP - General Family Medicine 11/30/21
--- OUTSIDE RECORDS SUMMARY | 2025-08-20 07:37 | XMS_ITS | Clinical Summary ---
Author Organization [facility] Address [address] [place] [address] Phone Care Team Providers Care Hollow Core Door Frame Assembler Name Role Phone Unavailable Primary Care Provider [...]
--- NOTE | 2025-09-14 09:07 | P.SLEEP_ITS ---
Sleep Study Date of Study: 08/20/25 Ordering Provider: Leann Lr APRN Interpreting Physician: Apoorva Greenwood MD Sleep Study Type: Split Polysomnogram Height: 1.57 m Weight: 113.398 kg Body Mass Index: 45.7 Neck Circumference (inches): 16 [place]: 19 Reason for Sleep Study Hypersomnolence; was diagnosed with sleep apnea but stopped using her machine during COVID Sleep History Jazmin Marvin is a 50-year-old woman with constant fatigue, loud snoring, difficulty falling asleep and always waking up during the night. Sometimes she gasps for air. She had testing prior to COVID, was told she had sleep apnea but is got worse. She has had a machine but with COVID she was afraid to use it so she stopped. She occasionally awakens from sleep short of breath. She occasionally wakes at night with heartburn, belching or coughing.??She constantly snores loudly enough that others complain. She frequently has trouble sleeping when she has a cold. She occasionally wakes up gasping for breath during the night. She she rarely has breathing problems at night observed by others. She never sweats excessively at night. She rarely notices her heart pounding or beating irregularly during the night. She frequently falls asleep during the day. She never falls asleep involuntarily, never falls asleep while driving. She rarely experiences loss of muscle tone with strong emotion. She never feels paralyzed on waking or falling asleep. She never experiences vivid dreams upon waking or falling asleep. She never feels afraid of going to sleep. She occasionally has nightmares. She constantly recalls her dreams. She frequently has thoughts racing through her mind. She occasionally feels sad or depressed. She constantly feels anxiety. She constantly notices parts of her body jerk. She rarely kicks during the night. She constantly feels crawling or aching feelings in her legs. She constantly feels leg pain at night. She never has morning jaw pain, and occasionally grinds her teeth at night. She constantly feels bothered by pain during the day, is constantly awakened by pain during the night. She always wakes up feeling stiff in the morning, always wakes feeling sore or achy in the morning. She constantly awakens with pain in her neck, spine, or joints. Normal bedtime is between 9:00 p.m. and 9:30 p.m., falling asleep within a 1/2 hour but sometimes up to an hour or longer due to pain, waking 1-2 times at night. She is able to return to sleep within 15-30 minutes. She wakes at 6:30 a.m., reports getting between 6 and 7 hours of sleep per night. On weekends, bedtime is 10:00 p.m. to 11:00 p.m. and wake time is between 8:00 a.m. and 9:00 a.m. she is drowsy for 3 hours after waking. In general she does not take naps although a short nap lasting 10-15 minutes may be refreshing. Habits:??Tobacco: never smoker Caffeine:2-4 cups per day Alcohol: none Recreational substances: none PMFSH Past Medical History Medical History (Updated 09/14/25 @ 10:06 by Apoorva Greenwood MD) Obstructive sleep apnea Encounter to establish care Peripheral neuropathy Leg pain, bilateral Menopause Colon cancer screening Arthritis Anxiety Breast screening Dietary counseling and surveillance (07/01/18) Elevated BP without diagnosis of hypertension Screening, lipid Family History Family History Father Diabetes mellitus Hypertension Mother Diabetes mellitus Grandparent Diabetes mellitus Hypertension Grandparent Diabetes mellitus Other Family history of arthritis Social History Social History Smoking status: Never smoker Second hand tobacco smoke exposure: No Alcohol intake: never Substance use: never Substance use type: does not use Lack of Transportation: No Current Housing: Decline to Answer Concerned About Future Housing: Decline to Answer Difficulty Paying Gas/Electric Bills: Decline to Answer Difficulty Paying for Meds: Decline to Answer Currently Unemployed: Decline to Answer Education: Decline to Answer Difficulty w/ Childcare or Family Care: Decline to Answer Living arrangements: with family Additional living arrangements comments: 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 Gender identity (if verbalized by the patient): Female Sexual Orientation (if Verbalized by the Patient): Straight or Heterosexual Spiritual care concerns: No Medications Home Medications ?Medication ?Instructions ?Recorded ?Confirmed ?Type ibuprofen 400 mg tablet 400 mg PO TID PRN 11/21/22 1 09/22/24 History lisinopril 2.5 mg tablet 2.5 mg PO DAILY #90 tabs 10/2807/23/25 Rx duloxetine 60 mg capsule,delayed 60 mg PO DAILY #90 ca ps 05/29/25 07/23/25 Rx release gabapentin 300 mg capsule 300 mg PO QHS 05/29/2507/23 History empagliflozin 10 mg tablet 10 mg PO DAILY #90 tabs Rx ([facility]) Sleep Procedure A split night polysomnogram using the [employer] multi-channel system recorded the standard physiologic parameters including EEG, EOG, submentalis EMG, anterior tibialis EMG, EKG, body position, nasal and oral airflow using nasal pressure sensor and thermistor. Respiratory parameters of chest and abdominal movements were recorded with Respiratory Inductance Plethysmography belts. Oxygen saturation was recorded by pulse oximetry. Video monitoring was also performed. Sleep stages, periodic limb movements, and EEG arousals were scored in 30 second epochs according to the criteria of the AASM Scoring Manual. The Apnea-Hypopnea Index was calculated using CMS guidelines for definition of hypopnea while scoring respiratory events. After the baseline portion the patient met criteria for a titration with an AHI of 39.2 and desaturation to 74%. She used a medium ResMed AirTouch F20 full face mask, was titrated from 5 cm to 14 cm with 3 cm of EPR. At CPAP 13 with 2 cm EPR, the patient spent 83 minutes in bed, 5 minutes awake, 72 minutes in non- REM, 6 minutes in REM with a sleep efficiency of 94%. The residual apnea- hypopnea index is 15.4 with an average saturation of 92%. The patient had 11 central apneas, 2 mixed apneas and 8 hypopneas. With regular treatment, the central apneas are expected to improve further lowering the apnea-hypopnea index on treatment. The patient slept in the left lateral position during the titration, and slept in the supine position during the baseline. Sleep Architecture During the diagnostic portion of the study, the total recording time was 220.5 minutes. The total sleep time was 130.0 minutes. Sleep latency was 50.5 minutes. REM latency was 79.0 minutes. Sleep Efficiency was 59.0%. The patient had 14 awakenings for an awakening index of 6.5. Wake after sleep onset time was 40.0 minutes. The patient spent 6.0 minutes, 4.6% of total sleep time in Stage N1. The patient spent 44.0 minutes, 33.8% in Stage N2. The patient spent 55.5 minutes, 42.7% in Stage N3. The patient spent 24.5 minutes, 18.8% in Stage REM sleep. At 01:50:30 AM the patient was placed on PAP treatment. During the treatment portion of the study, the total recording time was 235.0 minutes. The total sleep time was 185.0 minutes. Sleep latency was 17.0 minutes. REM latency was 32.5 minutes. Sleep Efficiency was 78.7%. Wake after Sleep Onset time was 32.5 minutes. The patient spent 12.5 minutes, 6.8% of total sleep time in Stage N1. The patient spent 93.0 minutes, 50.3% in Stage N2. The patient spent 29.0 minutes, 15.7% in Stage N3. The patient spent 50.5 minutes, 27.3% in Stage REM. Respiratory Analysis During the diagnostic portion of the study, the patient had 58 hypopneas, 18 obstructive apneas, 3 mixed apneas, and 6 central apneas for an overall Apnea Hypopnea Index of 39.2 events per hour. The REM Apnea Hypopnea Index was 83.3. The NREM Apnea Hypopnea Index was 29.0. The patient had a Central Apnea Hypopnea Index of 2.8. There were no Respiratory Effort Related Arousals; The Respiratory Disturbance Index is 40.2 events per hour. There was no evidence of Galo- Jacques Respirations. During the treatment portion of the study, the patient had 29 hypopneas, no obstructive apneas, 3 mixed apneas, and 27 central apneas for an overall Apnea Hypopnea Index of 19.1 events per hour. The REM Apnea Hypopnea Index was 16.6. The NREM Apnea Hypopnea Index was 20.1. The patient had a Central Apnea Hypopnea Index of 8.8. There were no Respiratory Effort Related Arousals.. The Respiratory Disturbance Index is 22.7 events per hour. There was no evidence of Galo-Jacques Respirations. Arousals During the diagnostic portion of the study, there were a total of 51 arousals for an arousal index of 23.5. There were 25 respiratory arousals for an index of 11.5. There were 3 periodic limb movement arousals for an index of 1.4. There were 2 isolated limb movement arousals for an index of 0.9. There were 20 spontaneous arousals for an index of 9.2. During the treatment portion of the study, there were a total of 64 arousals for an index of 20.8. There were 12 respiratory arousals for an index of 3.9. There were 4 periodic limb movement arousals for an index of 1.3. There were 5 isolated limb movement arousals for an index of 1.6. There were 42 spontaneous arousals for an index of 13.6. Periodic Limb Movements During the diagnostic portion of the study, the patient had 9 isolated limb movements with an index of 4.2. The patient had 101 periodic limb movements with an index of 46.6. The patient had a total of 110 limb movements with a total limb movement index of 50.8. During the treatment portion of the study, the patient had 16 isolated limb movements with an index of 5.2. The patient had 111 periodic limb movements with an index of 36.0. The patient had a total of 127 limb movements with a total limb movement index of 41.2. Oximetry Data During the diagnostic portion of the study, the patient had an average oxygen saturation of 93% in wake with a minimum oxygen saturation of 78% and a maximum oxygen saturation of 98%. The patient had an average oxygen saturation of 89.9% in sleep with a minimum oxygen saturation of 74% and a maximum oxygen saturation of 98%. The patient had 87 oxygen desaturations resulting in an Oxygen Desaturation Index of 40.2. The patient spent 39.8 minutes, 18% of total sleep time with an oxygen saturation less than 88%. During the treatment portion of the study, the patient had an average oxygen saturation of 93.1% in wake with a minimum oxygen saturation of 83% and a maximum oxygen saturation of 98.0%. The patient had an average oxygen saturation of 91.8% in sleep with a minimum oxygen saturation of 82% and a maximum oxygen saturation of 97%. The patient had 73 oxygen desaturations resulting in an Oxygen Desaturation Index of 23.7. The patient spent 9.2 minutes, 3.9% of total sleep time with an oxygen saturation less than 88%. Snoring Profile During the diagnostic portion, snoring was moderately loud, eliminated during the titration. Cardiac Profile During the diagnostic portion of the study, the EKG showed normal sinus rhythm. The average pulse rate was 86.1 bpm. The minimum pulse rate was 67 bpm. The maximum pulse rate was 105 bpm. No arrhythmias noted. During the treatment portion of the study, the EKG showed normal sinus rhythm. The average pulse rate was 87.3 bpm. The minimum pulse rate was 76 bpm. The maximum pulse rate was 103 bpm. No arrhythmias noted. EEG Profile Unremarkable, no evidence of seizures. Assessment and Plan Assessment and Plan (1) Obstructive sleep apnea: Code(s): G47.33 - Obstructive sleep apnea (adult) (pediatric) Status: Acute Assessment and Plan: This split night sleep study on 08/20/2025 shows severe obstructive sleep apnea, the baseline apnea-hypopnea index was 39.2 with desaturation to 74% and 39.8 minutes, 18% the baseline spent below 88%. She had central and mixed apneas even on the baseline portion. At CPAP 13 with 2 cm EPR, the patient spent 83 minutes in bed, 5 minutes awake, 72 minutes in non-REM, 6 minutes in REM with a sleep efficiency of 94%. The residual apnea-hypopnea index is 15.4 with an average saturation of 92%. The patient had 11 central apneas, 2 mixed apneas and 8 hypopneas. With regular treatment, the central apneas are expected to improve further lowering the apnea-hypopnea index on treatment. The patient should be prescribed this [employer]Med equipment as well as tubing, filters and reservoir. This should be used with all episodes of sleep. Compliance should be reviewed within 31-90 days of starting therapy for usage greater than 4 hours per night greater than 70% of the nights. The patient should be asked about symptoms such as excessive daytime sleepiness, quality of sleep, decreased nocturia, increased mental functioning such as memory, mood, and concentration. BMI is 45. Weight management is advised. Clinical data suggests that weight loss of 10% can reduce the severity of respiratory events and snoring and imp rove AHI by as much as 25%. (2) Restless legs syndrome (RLS): Code(s): G25.81 - Restless legs syndrome Status: Acute Assessment and Plan: Her sleep history is consistent with restless legs syndrome. She has frequent uncomfortable feelings in her legs and complained of constant jerking. She has diabetes which can be associated with these symptoms. She had significant limb movements during the study but they did not cause arousals. She has low ferritin, May 29, 2025 purging level was 32 and on 07/23/2025, ferritin level was 28.6. Ferritin should be 75 ng/mL or greater in the setting of RLS to improve symptoms. Consider iron supplementation to achieve ferritin of 75 ng/mL. There are nonpharmacologic methods to treat limb movements including daily exer cise, stretching calf muscles before bed, avoiding excessive amounts of caffeine and alcohol, vitamin B supplementation, magnesium lotion massaged into legs before bed, and use of a weighted blanket. Pharmacologic therapy is very effective for restless legs syndrome and limb movements during sleep and may include [id number] voltage-gated calcium channel ligands such as gabapentin which is preferable to dopaminergic agents which can have augmentation. Data The data obtained during this sleep study is adequate for interpretation. Certification This sleep study has been reviewed by a board certified sleep medicine physician.
[2025-09-14 10:09] VITALS: BMI 45.7
== END 2025-08-21 06:36 | disposition home or self-care (01) ==
PROVIDERS: PCP Nurse Practitioner Family; Visit Provider Nurse Practitioner Family
DX: G47.30 Sleep apnea, unspecified (principal); G47.33 Obstructive sleep apnea (adult) (pediatric); G25.81 Restless legs syndrome
CPT/HCPCS: 95811